=== PATIENT | male | born 1955 | race Caucasian/White ===

== ENCOUNTER 2017-07-29 05:00 | Inpatient (IN) | payer BC, OTHER ==
--- NOTE | 2017-06-30 10:09 | HISTORY & PHYSICAL EXAMINATION ---
DATE OF ADMISSION: 07/29/2017 PROCEDURE: Right knee replacement. HISTORY OF PRESENT ILLNESS: The patient is a charu 62-year-old male who presents today for preop evaluation prior to right knee replacement. He states he has been having pain in this knee for many years now, which has gradually worsened, has not gotten to the point it is affecting his daily activities including walking, standing, going up and down steps. He has tried previous cortisone injection as well has ambulated with a cane and walker in the past. He has tried physical therapy as well as oral anti-inflammatories including ibuprofen and Aleve. At this point in time, has failed conservative measures and would like to proceed with a right knee replacement. Of note, have a left knee replacement approximately 9 years ago and is doing well. PAST MEDICAL HISTORY: 1. Hypertension. 2. High cholesterol. 3. Sleep apnea. 4. 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 ALLERGIES: No known drug allergies. CURRENT MEDICATIONS: 1. Aspirin 81 mg daily. 2. Lisinopril 20 mg daily. 3. Omeprazole 20 mg daily. 4. Atorvastatin 20 mg daily. 5. Ranitidine 150 mg daily. 6. Vitamin D. PAST SURGICAL HISTORY: 1. Left knee replacement. 2. Removal of testicle 1992 secondary to cancer. FAMILY HISTORY: Noncontributory. SOCIAL HISTORY: The patient is . Lives in a 1 story home, is employed as a baker. REVIEW OF SYSTEMS: Otherwise negative. Please see HPI for pertinent positives. PHYSICAL EXAMINATION: GENERAL: Charu 62-year-old male in no acute distress, alert and oriented x3, 6 feet 2 inches, weighs 267 pounds. VITAL SIGNS: Blood pressure 130/82, pulse 68, O2 sat 98%. HEENT: Normocephalic, atraumatic. CARDIAC: Regular rate and rhythm. No murmurs or gallops appreciated. Resting pulse 68 beats per minute. LUNGS: Clear to auscultation without rales or wheeze bilaterally. ABDOMEN: Soft, nontender. Bowel sounds present. EXTREMITIES: Right lower extremity is neurovascularly intact. Calves are soft and nontender. DP pulse +2. Demonstrates good quad tone. Straight leg raise without lag. Overall has varus alignment. Positive crepitation with motion, range of motion is 0/5/115. IMAGING: Reviewed of the right knee show findings consistent with degenerative joint disease including joint space narrowing, subchondral sclerosis, peripheral osteophytes noted. Has complete loss of joint space of the medial compartment. IMPRESSION: 1. Right knee degenerative joint disease. 2. Past medical history as outlined above. PLAN: Further care discussed with patient. At this point in time, has failed conservative measures. He would like to proceed with a right knee replacement. We will place on aspirin 81 mg p.o. b.i.d. for a month postop. He would like to be discharged home with outpatient therapy.
[2017-06-30 11:12] VITALS: BMI 34.0
--- NOTE | 2017-06-30 11:48 | PAT Medication Instructions ---
Service Date Jun 30, 2017. Current Home Medication List Aspirin (Aspirin Ec), 81 MG PO QAM Atorvastatin (Lipitor), 20 MG PO HS Cholecalciferol (Vitamin D), 2,000 INTER.UNIT PO QAM Lisinopril (Zestril), 20 MG PO QAM Ranitidine (Zantac), 1 TAB PO BID Medication Instructions For Your Scheduled Surgery - Hold the following medications the morning of surgery: Cholecalciferol (Vitamin D), 2,000 INTER.UNIT PO QAM Lisinopril (Zestril), 20 MG PO QAM - Take the following medications the morning of surgery with a sip of water OTHERWISE NOTHING TO EAT OR DRINK AFTER MIDNIGHT: Aspirin (Aspirin Ec), 81 MG PO QAM Ranitidine (Zantac), 1 TAB PO BID - Take the following medications as scheduled the night before surgery: Ranitidine (Zantac), 1 TAB PO BID Atorvastatin (Lipitor), 20 MG PO HS If you have any questions please call us at [phone] or [phone] or [phone]
[2017-06-30 12:17] LABS: BASO % 0.3 %; EOS % 1.4 %; HEMATOCRIT 39.6 % (42-52); IG% 0.3 %; LYMPH % 26.3 %; LYMPH ABS # 1.72 K/uL (1.2-3.4); MEAN CELL VOLUME 90.2 fL (80-100); MEAN CORPUSCULAR HEMOGLOBIN 31.2 pg (25-34); MEAN CORPUSCULAR HGB CONC 34.6 g/dl (32-36); MEAN PLATELET VOLUME 9.7 fL (7.4-10.4); MONO % 5.4 %; NEUT % 66.3 %; PLATELET COUNT 174 K/uL (130-400); RED BLOOD COUNT 4.39 M/uL (4.7-6.1); WHITE BLOOD COUNT 6.53 K/uL (4.8-10.8)
[2017-06-30 12:18] LABS: BASO ABS # 0.02 K/uL (0-0.2); COMPLETE YES
[2017-06-30 12:19] LABS: URINE APPEARANCE CLEAR (CLEAR); URINE BILIRUBIN NEG (NEG); URINE COLOR YELLOW; URINE NITRITE NEG (NEG); UROBILINOGEN NEG (NEG)
[2017-06-30 12:21] LABS: MANUAL MICROSCOPIC REQUIRED? NO; REVIEW REQ? NO
[2017-06-30 12:28] LABS: PROTHROMBIN TIME (PATIENT) 10.4 SECONDS (9.0-12.0)
--- NOTE | 2017-06-30 12:35 | DIAGNOSTIC IMAGING REPORT ---
CHEST PREADMISSION(PA/LAT) CLINICAL HISTORY: Preoperative chest COMPARISON STUDY: 02/17/2006 FINDINGS: The cardiac and mediastinal contours are normal. There is no evidence of focal pulmonary consolidation. There is no evidence of failure. No pleural effusions are visualized.[ IMPRESSION: No active disease in the chest. Electronically signed by: Alejandro Parrish M.D. 06/30/2017 12:34 PM Dictated Date/Time: 06/30/2017 12:34 PM
[2017-06-30 12:46] LABS: ESTIMATED AVERAGE GLUCOSE 111 mg/dl; HA1C FLAG Normal (Normal)
[2017-06-30 13:20] LABS: BUN/CREATININE RATIO 11.3 (10-20); CALCIUM 9.1 mg/dl (8.5-10.1); CREATININE 1.1 mg/dl (0.60-1.40); POTASSIUM 4.1 mmol/L (3.5-5.1)
[2017-07-29] VITALS (11 sets, daily range): BP systolic 126–153; BP diastolic 80–95; PULSE 73–88; TEMP 36.4–36.6; O2SAT 94–99; Ht 188 cm; Wt 121.2 kg
[~2017-07-29] VITALS: Ht 188 cm; Wt 121.2 kg
[~2017-07-29 05:00] MED LIST: ASPI81TA28 PO; ATOR-22 PO; CHOL100010 PO; LISI-725 PO; ZNTT/150 PO
[2017-07-29] MEDS ORDERED: ACETAMINOPHEN 500 MG TAB PO SCH (06:00)
[2017-07-29] MEDS ORDERED: CEFAZOLIN 3000 MG/65 ML D5W 65 ML IV SCH (06:00)
[2017-07-29] MEDS ORDERED: DEXAMETHASONE 4 MG TAB PO SCH (06:00)
[2017-07-29] MEDS ORDERED: FAMOTIDINE 20 MG TAB PO SCH (06:00)
[2017-07-29] MEDS ORDERED: METOCLOPRAMIDE HCL 10 MG TAB PO SCH (06:00)
[2017-07-29] MEDS ORDERED: CeleBREX 200 MG CAP PO SCH (06:00)
[2017-07-29] MEDS ORDERED: TRANEXAMIC ACID INJ 1,000 MG in SODIUM CHLORIDE 0.9% 100ML 100 ML IV SCH (06:00)
[2017-07-29] MEDS ORDERED: ROPIVACAINE 5MG/ML 30 ML 150 MG, BUPIVACAINE/EPINEPHR 0.5% MPF 30 ML, KETOROLAC TROMETH... INFIL SCH ×7 (06:00)
[2017-07-29] MEDS ORDERED: LACTATED RINGER'S 1000ML 1,000 ML IV SCH (06:00)
[2017-07-29] MEDS ORDERED: GABAPENTIN 300 MG CAP PO SCH (06:00)
[2017-07-29] MEDS ORDERED: LACTATED RINGER'S 1000ML 500 ML IV ONE (06:00)
[2017-07-29] MEDS ORDERED: LACTATED RINGER'S 1000ML IV SCH (06:00)
[2017-07-29] MEDS ORDERED: BUPIVACAINE 0.5 % 5 MG/1 ML PF 10ML VIAL ONE (06:29)
[2017-07-29] MEDS ORDERED: BUPIVACAINE 0.25% 30 ML VIAL ONE (06:29)
[2017-07-29] MEDS ORDERED: MIDAZOLAM HCL 1 MG/ML 2ML VIAL ONE (06:49)
[2017-07-29] MEDS ORDERED: FENTANYL CITRATE INJ 50 MCG/1 ML 2 ML VIAL ONE (06:50)
[2017-07-29] MEDS ORDERED: ORTHO JOINT ANESTHETIC ONE (06:54)
[2017-07-29] MEDS ORDERED: BACITRACIN 50000 UNIT VIAL ONE (06:54)
[2017-07-29] MEDS ORDERED: POVIDONE-IODINE OP SOLN 30 ML BTL ONE (06:54)
--- NOTE | 2017-07-29 07:15 | History & Physical Bridge Note ---
H&P Re-Evaluation Bridge Note: I have examined the patient, reviewed the History & Physical and in the interval since the performance of the History & Physical I have noted the following changes of clinical significance: No changes noted
[2017-07-29] MEDS ORDERED: LIDOCAINE HCL 2% 2 ML VIAL (20MG/ML) ONE (07:47)
[2017-07-29] MEDS ORDERED: PROPOFOL IV EMULSION 10 MG/ML 20 ML VIAL IV ONE ×2 (07:47→08:35)
[2017-07-29] MEDS ORDERED: PHENYLEPHRINE 100MCG/ML 5ML SYR ONE (07:47)
--- NOTE | 2017-07-29 08:39 | [facility] Operative Report ---
Operative Report Operative Date Jul 29, 2017. Pre-Operative Diagnosis Right Knee Degenerative Joint Disease Post-Operative Diagnosis Same as preop Procedure(s) Performed Right Total KNne Arthroplasty utilizing Wu & Nephew journey 2 patient matched total knee arthroplasty size 9 femur a tibia 13 Pati [address] Barksdale Prosthetist Surgeon(s) Morro Ya PA-C Estimated Blood Loss 5 ml Findings Patient presents with severe end-stage tricompartmental degenerative joint disease of the right knee for right total knee arthroplasty postoperative pain management DVT prophylaxis antibiotics Specimens A. Right Knee Bone and Tissue Complication(s) None Disposition Recovery Room / PACU Indications Patient presents after failing attempts at conservative management for the right knee with a severe end-stage DJD varus alignment subchondral sclerosis medial osteophytes varus alignment plans for total knee arthroplasty BioSorb pain management DVT prophylaxis. Description of Procedure After proper prepping and draping of the Right lower extremity anterior midline incision was made over the region of the extensor extensor mechanism after meticulous hemostasis was obtained and maintained in subcutaneous tissues a medial parapatellar incision was made The patella was subluxed lateralward the medial lateral gutter were cleaned from any hypertrophic synovitis and scar tissue of the distal femoral block was placed and the distal femoral osteotomy cut was made subsequently the chamfers anterior and posterior osteotomy cuts were made utilizing the 4-in-1 block the tibia was subsequently subluxed anteriorward medial and ateral meniscal remnants were excised in their entirety remnants of the anterior and posterior cruciate ligaments were excised in their entirety excellent exposure of the proximal tibia was obtained the tibial osteotomy guide was placed on the proximal tibial osteotomy cut was made once again the knee was irrigated with copious amounts of sterile saline solution the patella was subsequently everted lateralward thickened scar tissue around the patella was removed the patella was subsequently cut utilizing a freehand technique and was drilled prepared for final preparation and placement of patella socially flexion-extension gaps were checked and the equal and symmetric trials were placed to the appropriate femoral and tibial trials with poly-spacer being placed for equal flexion and extension gaps and full range of motion including extension to 0 and flexion to 140 the trial components after having been taken to recovery range of motion was subsequently removed meticulous hemostasis was obtained and maintained subsequently a knee block injection of joint cocktail including ropivacaine 0.5% 150 mg. Bupivacaine 0.5 % epinephrine 1-200,030 mL's toradol 30 mg dexamethasone 4 mg ketamine 10 mg clonidine 100 micrograms normal saline solution 30 mg was infiltrated into the soft tissues of the posterior knee medial lateral gutters and periosteal synovium special attention was paid to protect neurovascular structures at all times subsequently trial components having been removed the knee was irrigated with sterile saline solution. debris was removed the proximal tibia was subsequently prepared and was made ready for the placement of the tibial component tibial component was also cemented and tamped into position the femoral component was subsequently placed and cemented in the position the patellar component was subsequently cemented in position because hemostasis once again obtained and maintained wound having been thoroughly irrigated with debridement and debridement lavage was performed as well as a medial parapatellar incision closed with #1 Vicryl in interrupted fashion subcutaneous was closed with #2 Vicryl skin was closed with skin clips. PA-C was necessary for prepping and drapping as well as wound closure of deep fascia Sub cutaneous tissue and skin and was necessary for the case. A sterile compressive dressing was placed patient was taken to recovery in stable condition of report dictated by Shamir I attest to the content of the Intraoperative Record and any orders documented therein. Any exceptions are noted below. I attest to the content of the Intraoperative Record and any orders documented therein. Any exceptions are noted below.
[2017-07-29] MEDS ORDERED: LABETALOL HCL IV 5 MG/ML 20ML IV PRN (09:15)
[2017-07-29] MEDS ORDERED: HYDROmorphone INJ 1 MG/ML SYR IV PRN (09:15)
[2017-07-29] MEDS ORDERED: EpHEDrine SULFATE INJ 50 MG/ML AMP IV PRN (09:15)
[2017-07-29] MEDS ORDERED: ONDANSETRON INJ 2 MG/ML 2 ML VIAL IV PRN ×2 (09:15→09:30)
[2017-07-29] MEDS ORDERED: ATROPINE SULFATE 0.1 MG/ML 5ML SYR IV PRN (09:15)
[2017-07-29] MEDS ORDERED: FENTANYL CITRATE INJ 50 MCG/1 ML 2 ML VIAL IV PRN (09:15)
[2017-07-29] MEDS ORDERED: MEPERIDINE HCL 25 MG/ML CARP IV PRN (09:15)
[2017-07-29] MEDS ORDERED: MAGNESIUM HYDROXIDE SUSP 30 ML UDC PO PRN (09:30)
[2017-07-29] MEDS ORDERED: OXYCODONE HCL IR 5 MG TAB (IMMEDIATE RELEASE) PO PRN (09:30)
[2017-07-29] MEDS ORDERED: ALUMINUM/MAGNESIUM/SIMETH (MAALOX MAX) 30 ML UDC PO PRN (09:30)
[2017-07-29] MEDS ORDERED: MoRPHine SULFATE 2 MG/ML CARP IV PRN ×2 (09:30→09:45)
[2017-07-29] MEDS ORDERED: TAMSULOSIN HCL 0.4 MG CAP PO PRN (09:30)
[2017-07-29] MEDS ORDERED: BISACODYL 10 MG SUPP PR PRN (09:30)
[2017-07-29] MEDS ORDERED: MoRPHine SULFATE 4 MG/ML 1 ML CARP\\VIAL IV PRN (09:45)
[2017-07-29] MEDS ORDERED: MoRPHine SULFATE 10 MG/ML CARP/VIAL IV PRN (09:45)
--- NOTE | 2017-07-29 10:00 | DIAGNOSTIC IMAGING REPORT ---
TWO VIEWS RIGHT KNEE CLINICAL HISTORY: Postoperative examination. FINDINGS: AP and crosstable lateral portable views of the right knee are obtained. A right knee arthroplasty is in near anatomic alignment. There has been undersurface remodeling of the patella. No acute fracture is seen. There are expected postoperative changes around the knee including a surgical drain, soft tissue edema, and subcutaneous gas. IMPRESSION: Expected postoperative changes status post right knee arthroplasty. No acute fracture is seen. Electronically signed by: Jesus Patton M.D. 07/29/2017 9:58 AM Dictated Date/Time: 07/29/2017 9:58 AM
--- NOTE | 2017-07-29 10:04 | Anesthesiology Progress Note ---
Anesthesia Post Op Note Date & Time Jul 29, 2017 at 10:04 Vital Signs Pain Intensity: 0 Vital Signs Past 12 Hours Date Time Temp Pulse Resp B/P (MAP) Pulse Ox O2 Delivery O2 Flow Rate FiO2 07/29/17 10:00 82 16 123/81 98 Nasal Cannula 2 07/29/17 09:50 36.4 87 16 116/75 99 Nasal Cannula 2 07/29/17 09:40 87 16 111/66 99 Nasal Cannula 2 07/29/17 09:30 87 16 115/70 100 Oxymask 10 07/29/17 09:20 36.7 94 16 99/67 100 Oxymask 10 07/29/17 06:00 36.4 73 20 134/95 07/29/17 05:47 99 Room Air Notes Mental Status: alert / awake / arousable, participated in evaluation Pt Amnestic to Procedure: Yes Nausea / Vomiting: adequately controlled Pain: adequately controlled Airway Patency, RR, SpO2: stable & adequate BP & HR: stable & adequate Hydration State: stable & adequate Neuraxial Anesthesia: was administered, sensory block is resolving Anesthetic Complications: no major complications apparent
[2017-07-29] MEDS: D5W AND 1/2NSS + 20MEQ KCL 1,000 ML IV SCH ×2 (11:32→21:25)
[2017-07-29] MEDS: FERROUS GLUCONATE 324 MG TAB PO SCH ×2 (12:14→18:45)
[2017-07-29] MEDS: ACETAMINOPHEN 500 MG TAB PO SCH ×2 (14:13→22:03)
[2017-07-29] MEDS: TRAMADOL HCL 50 MG TAB PO PRN ×2 (16:00→17:05)
[2017-07-29] MEDS: CEFAZOLIN IV 2,000 MG in SYRINGE 0 ML IV SCH (16:00)
[2017-07-29] MEDS ORDERED: SENNA 8.6 MG TAB PO SCH (21:00)
[2017-07-29] MEDS: DOCUSATE SODIUM 100 MG CAP PO SCH (21:00)
[2017-07-29] MEDS ORDERED: ATORVASTATIN 20 MG TAB PO SCH (21:00)
[2017-07-29] MEDS: RANITIDINE HCL 150 MG TAB PO SCH (21:25)
[2017-07-29] MEDS: ASPIRIN 81 MG ECTAB PO SCH (22:02)
[2017-07-29] MEDS: CeleBREX 200 MG CAP PO SCH (22:02)
[2017-07-30] MEDS: TRAMADOL HCL 50 MG TAB PO PRN (00:25)
[2017-07-30] MEDS: CEFAZOLIN IV 2,000 MG in SYRINGE 0 ML IV SCH (00:25)
[2017-07-30 03:09] VITALS: BP 124/78; PULSE 77; TEMP 36.5; O2SAT 99
[2017-07-30] MEDS: D5W AND 1/2NSS + 20MEQ KCL 1,000 ML IV SCH (05:28)
[2017-07-30] MEDS: ACETAMINOPHEN 500 MG TAB PO SCH ×2 (05:28→14:27)
[2017-07-30 06:12] LABS: HEMATOCRIT 35.9 % (42-52); MEAN CELL VOLUME 88.4 fL (80-100); MEAN CORPUSCULAR HEMOGLOBIN 31.8 pg (25-34); MEAN CORPUSCULAR HGB CONC 35.9 g/dl (32-36); MEAN PLATELET VOLUME 10.3 fL (7.4-10.4); PLATELET COUNT 177 K/uL (130-400); RED BLOOD COUNT 4.06 M/uL (4.7-6.1); WHITE BLOOD COUNT 15.06 K/uL (4.8-10.8)
[2017-07-30 06:44] LABS: BUN/CREATININE RATIO 14.5 (10-20); CREATININE 1.22 mg/dl (0.60-1.40); POTASSIUM 4.3 mmol/L (3.5-5.1)
--- NOTE | 2017-07-30 07:43 | Orthopedic Progress Note ---
Orthopedic Progress Note Date of Service Jul 30, 2017. Subjective Post OP Day: 1 Reports: feeling well, Denies: chest pain, SOB, nausea / vomiting, light headedness, calf pain Objective calves soft nontender, N/V intact, capillary refill less than 2 sec., dressing C /D/I, A&O x3, toes mobile, hemovac drainage Date Time Temp Pulse Resp B/P (MAP) Pulse Ox O2 Delivery O2 Flow Rate FiO2 07/30/17 03:09 36.5 77 16 124/78 (93) 99 Room Air 07/30/17 00:15 Room Air 07/29/17 23:07 36.6 76 17 133/85 (101) 97 Room Air 07/29/17 19:37 36.5 84 18 153/94 (113) 98 Room Air 07/29/17 15:50 98 Room Air 07/29/17 15:21 36.4 88 18 128/80 (96) 97 Nasal Cannula 2.0 07/29/17 13:23 36.4 88 20 147/86 (106) 98 Nasal Cannula 2.0 07/29/17 12:18 36.6 82 16 151/94 (113) 98 Nasal Cannula 2.0 07/29/17 11:21 79 19 133/89 (104) 97 Nasal Cannula 2.0 07/29/17 10:51 81 19 132/87 (102) 98 Nasal Cannula 2.0 07/29/17 10:15 36.5 86 16 126/82 (97) 94 Nasal Cannula 2.0 07/29/17 10:15 Nasal Cannula 2.0 07/29/17 10:15 Nasal Cannula 2.0 07/29/17 10:00 82 16 123/81 98 Nasal Cannula 2 07/29/17 09:50 36.4 87 16 116/75 99 Nasal Cannula 2 07/29/17 09:40 87 16 111/66 99 Nasal Cannula 2 07/29/17 09:30 87 16 115/70 100 Oxymask 10 07/29/17 09:20 36.7 94 16 99/67 100 Oxymask 10 Laboratory Results 24 Hours: Test 07/30/17 05:29 Hematocrit 35.9 % Hemoglobin 12.9 g/dL Assessment & Plan Assessment: POD#1 sp right TKA Plan: PT/OT DVT proph- ASA 81mg bid Pain management- Celebrex, Senia, Tylenol Dc planning- DC home today with advantage. Keep dressing and drain intact for removal in am.
[2017-07-30] MEDS ORDERED: SNK PO (07:47)
[2017-07-30] MEDS ORDERED: ASPI81TA28 PO (07:47)
[2017-07-30] MEDS ORDERED: RXC5 PO (07:47)
[2017-07-30] MEDS ORDERED: ACET-24 PO (07:47)
[2017-07-30] MEDS ORDERED: ONDA8TAB6 PO (07:47)
[2017-07-30] MEDS ORDERED: CLB200 PO (07:47)
--- NOTE | 2017-07-30 07:48 | Discharge Instructions ---
Discharge Instructions Date of Service Jul 30, 2017. Admission Reason for Admission: Right Knee Osteoarthritis Discharge Discharge Diagnosis / Problem: sp right TKA Discharge Goals Goal(s): Decrease discomfort, Improve function, Increase independence Activity Recommendations Activity Limitations: per Instructions/Follow-up section . Instructions / Follow-Up Instructions / Follow-Up ACTIVITY RECOMMENDATIONS: SELF CARE INSTRUCTIONS AFTER TOTAL KNEE REPLACEMENT A. You may need to continue a physical therapy program after discharge from the hospital. There are several options available to you. Your doctor will assist you in selecting the best one for you. 1. An out-patient facility 2 to 3 times a week for therapy or home therapy. 2. Continue working on all exercises taught to you in the hospital. Your goals should be to increase bending of your knee to 90 degrees and beyond and to fully straighten your knee. B. You may progress at your own pace from walking with a walker or crutches to a cane; then to no assistive devices. C. Make walking a part of your daily routine. Be up as much as comfortable with rest periods throughout the day. Rest with leg elevation is very important. Use the ice wrap frequently for the first 3-4 weeks. D. There are no restrictions on activities. You may ride in a car, shop, participate in signal system testing maintainer and all social activities. E. Wear the long elastic stockings (HAYDEN hose) 20 hours a day for 2 weeks after surgery. They can be removed several times a day for laundering and for a bath. F. You may shower, no tub baths until cleared by your doctor. SPECIAL CARE INSTRUCTIONS: VERY IMPORTANT TO READ AND REVIEW A. There are a few signs you need to watch for after you are home. Call [facility] if you notice any of the followin. Increased severe knee pain. Some pain is expected especially when you exercise. 2. Increased swelling in your leg or knee; pain or swelling of the calf muscle in either lower leg. 3. Any fluid drainage from the incision. 4. Shortness of breath or chest pain. B. Please call [facility] at if you have any concerns or questions about your operation or recovery. The doctor or his nurse will return your call promptly. C. You must take antibiotics before dental work, bladder, bowel or other surgery. Your doctor will provide you with a permanent care to carry describing this precaution. IMPORTANT: * REMEMBER TO TAKE ASPIRIN, 81 MG, TWICE DAILY FOR 4 WEEKS UNLESS OTHERWISE DIRECTED. THIS IS YOUR BLOOD THINNER. * HIGH RISK PATIENTS MAY BE PRESCRIBED A STRONGER BLOOD THINNER. THIS WILL BE PROVIDED AT DISCHARGE. * CALL IF INCREASED PAIN, REDNESS, DRAINAGE OR FEVER GREATER THAT 101. * WEAR HAYDEN HOSE 20 HOURS PER DAY FOR 2 WEEKS. DERMABOND Prineo- This is a mesh tape dressing that is covered with glue. It should remain in place until the incision is properly healed, usually 10-14 days. This dressing is designed to naturally slough off. You may trim the excess mesh tape as it peels off. Incision may be briefly wet in a shower. Dry immediately by blotting with a clean, dry towel. Do not bath or swim until instructed by your doctor. Do not scratch, rub, or pick at the dressing. Do not apply any topical ointments or lotions until dressing is completely removed and/or instructed by your doctor. There may be a small piece of suture material at one end of your incision. Do not pull or trim this. If it is bothersome or catching on clothing, you may cover it with a band-aid. FOLLOW UP VISIT: If appointment is not already scheduled: Please call [facility] to make a follow-up appointment for 2 weeks after your surgery at . Current Hospital Diet Patient's current hospital diet: Regular Diet Discharge Diet Recommended Diet: Regular Diet Procedures Procedures Performed: Right Total KNne Arthroplasty utilizing Wu & Nephew journey 2 patient matched total knee arthroplasty size 9 femur a tibia 13 Pati 38 oval patella Pending Studies Studies pending at discharge: no Laboratory Results Hemoglobin A1c Test 06/30/17 11:56 Range/Units Estimated Average Glucose 111 mg/dl Hemoglobin A1c 5.5 4.5-5.6 % Medical Emergencies . Who to Call and When: Medical Emergencies: If at any time you feel your situation is an emergency, please call 911 immediately. . Non-Emergent Contact Non-Emergency issues call your: Surgeon . "Provider Documentation" section prepared by Iesha Chance. . VTE Core Measure Inpt VTE Proph given/why not?: Other Anticoagulation, T.E.D. Stockings, SCD's [place] Drug Monitoring Program Search Results: patient reviewed within database, no issues identified
[2017-07-30 07:49] VITALS: BP 134/89; PULSE 72; TEMP 36.5; O2SAT 97
[2017-07-30] MEDS: FERROUS GLUCONATE 324 MG TAB PO SCH ×2 (08:30→12:22)
[2017-07-30] MEDS ORDERED: LISINOPRIL 20 MG TAB PO SCH (09:00)
[2017-07-30] MEDS ORDERED: MULTIVITAMIN TAB PO SCH (09:00)
[2017-07-30] MEDS: DOCUSATE SODIUM 100 MG CAP PO SCH (09:00)
[2017-07-30] MEDS: CeleBREX 200 MG CAP PO SCH (09:00)
[2017-07-30] MEDS: ASPIRIN 81 MG ECTAB PO SCH (09:01)
[2017-07-30] MEDS: RANITIDINE HCL 150 MG TAB PO SCH (09:01)
[2017-07-30 11:39] VITALS: BP 144/83; PULSE 68; TEMP 36.6; O2SAT 98
== END 2017-07-30 15:00 | disposition home or self-care (01) | DRG 470 ==
LOC: C.ACU 05:00 → C.3E 06:40 → ENRESERV 09:49
PROVIDERS: ADMIT Orthopaedic Surgery; ATTEND Orthopaedic Surgery
PROC: 0SRC0J9 Replacement of Right Knee Joint with Synthetic Substitute, Cemented, Open Approach (ICD-10-PCS; principal; 2017-07-29 07:15)
DX: M17.11 Unilateral primary osteoarthritis, right knee (principal); I10 Essential (primary) hypertension; E78.00 Pure hypercholesterolemia, unspecified; Z79.899 Other long term (current) drug therapy; Z79.82 Long term (current) use of aspirin; Z96.652 Presence of left artificial knee joint; Z85.47 Personal history of malignant neoplasm of testis; Z85.118 Personal history of other malignant neoplasm of bronchus and lung; Z92.21 Personal history of antineoplastic chemotherapy

== ENCOUNTER 2023-05-26 01:40 | Observation (INO) ==
--- NOTE | 2023-05-26 01:47 | Emergency Department Note ---
History of Present Illness General Chief complaint: Chest Pain History of Present Illness This 68-year-old male presents to the ER complaining of intermittent chest pain for the past few weeks that was constant tonight. EMS gave nitroglycerin and patient felt better. He took aspirin on his own prior to arrival. No prior heart attack or stroke. Patient denies abdominal pain, fever, chills, flulike illness, radiating pain. Home Medications Medication Instructions Recorded Confirmed Type aspirin 81 mg tablet,delayed 81 mg PO QAM 09/01/19 04/19/20 History release atorvastatin 20 mg tablet 20 mg PO QAM 09/01/19 04/19/20 History lisinopril 20 mg tablet 20 mg PO BID 09/01/19 04/19/20 History omeprazole 20 mg capsule,delayed 20 mg PO BID 09/01/19 04/19/20 History release cholecalciferol (vitamin D3) 50 2,000 units PO DAILY 10/25/19 04/19/20 History mcg (2,000 unit) tablet Allergies Allergy/AdvReac Type Severity Reaction Status Date / Time No Known Drug Allergies Allergy Unknown Verified 06/15/20 14:47 Past Med/Surg History Medical History (Updated 05/26/23 @ 02:35 by Joellen Cifuentes PA-C) DJD (degenerative joint disease) GERD (gastroesophageal reflux disease) Hearing deficit Hx of duodenal ulcer Hyperlipidemia Hypertension Metastatic lung carcinoma (1990) Obesity Osteoarthritis Sleep apnea cpap-non compliant Testicular cancer surgery & chemo Surgical History History of bronchoscopy History of colonoscopy History of esophagogastroduodenoscopy (EGD) History of orchiectomy, unilateral History of total knee replacement bilateral, right TKA: 07/29/17: SAB at L3-L4 + PNB at [facility] Hx of inguinal hernia surgery (11/04/19) Open Right Direct Inguinal Hernia Repair with Mesh with Lipoma of the Cord Dr. Sood 11-04-19 Family History Aunt Family history of diabetes mellitus Grandmother Family history of diabetes mellitus Mother FHx: liver cancer Social History Smoking Status: Never smoker Cigarettes Per Day: 1 pack cigars/a month; Second Hand Exposure: No; Do You Dip or Chew Tobacco: No (quit 2005); Hx Alcohol Use: No (quit 2016 ~h/o heavy alcohol use) Hx Substance Use: No Preferred Language: Luxembourgish Communication Ability: Effective Communication Ability Comment: very [place] Paper Roller Required: No Beliefs That Will Affect Care: None Current Living Situation: Spouse Feels Safe at Home: Yes Assistive Devices: Glasses Review of Systems A total of 10 systems reviewed and were otherwise negative Physical Exam Vital Signs Vital Signs - 24 hr 05/26/23 01:43 05/26/23 01:46 05/26/23 01:46 Temperature 37.3 C Temperature Source Oral Pulse Rate 91 H 94 H 107 H Pulse Rate from SpO2 Sensor 94 H Pulse Rhythm Regular Pulse Strength Normal Respiratory Rate 20 14 Respiratory Effort / Characteristics Non-Labored Spontaneous Respiratory Depth Normal Respiratory Pattern Regular Blood Pressure 150/95 H 150/95 H Blood Pressure Mean 113 113 Blood Pressure Position Sitting Pulse Oximetry 95 98 Oxygen Delivery Method Room Air Room Air Sepsis Recent Fever Within 48 Hours No Sepsis New/Unexplained Change in Mental Status N/A Sepsis Action Taken by Nursing No Action Required 05/26/23 02:00 05/26/23 02:30 Temperature Temperature Source Pulse Rate 83 Pulse Rate from SpO2 Sensor 83 Pulse Rhythm Pulse Strength Respiratory Rate 18 Respiratory Effort / Characteristics Respiratory Depth Respiratory Pattern Blood Pressure 151/92 H 129/84 Blood Pressure Mean 100 99 Blood Pressure Position Pulse Oximetry 98 Oxygen Delivery Method Room Air Sepsis Recent Fever Within 48 Hours Sepsis New/Unexplained Change in Mental Status Sepsis Action Taken by Nursing VITALS: Vitals are noted on the nurse's note and reviewed by myself. Vital s igns stable. GENERAL: Pleasant gentleman, in no acute distress, nondiaphoretic, well- developed well-nourished. SKIN: The skin was without rashes, erythema, edema, or bruising. There is no tenting of the skin. Capillary reflex less than 2 seconds. HEAD: Normocephalic atraumatic. EARS: External auditory canals clear, EYES: Pupils equal round and reactive to light and accommodation. Conjunctivae without injection, sclerae without icterus. Extraocular movements intact. NOSE: Patent, turbinates without inflammation or discharge. MOUTH: Mucous membranes moist. Pharynx without erythema or exudate. Uvula midline. Airway patent. Tongue does not deviate. NECK: Supple without nuchal rigidity. No lymphadenopathy. No thyromegaly. Cervical spine is nontender. No JVD. HEART: Regular rate and rhythm LUNGS: Clear to auscultation bilaterally without wheezes, rales or rhonchi. No retractions or accessory muscle use. ABDOMEN: Positive bowel sounds x 4. Normal tympanic percussion. Soft, nontender, without masses or organomegaly. Manrique sign negative. No guarding or rebound tenderness. No CVA tenderness MUSCULOSKELETAL: No muscle atrophy, erythema, or edema noted. NEURO: Patient was alert and oriented to person place and time. Normal sensation to light and sharp touch. No focal neurological deficits. Medical Decision Making Medical Records Attestation: I reviewed the patient's medical records. Home Medications Current Medication List: was personally reviewed by me Laboratory Data Attestation: I reviewed the patient's lab results. 05/26/23 01:48 05/26/23 01:48 Lab Results 05/26/23 05/26/23 Range/Units 01:48 01:48 WBC 8.93 (4.8-10.8) K/ul RBC 4.45 L (4.70-6.10) M/uL Hgb 13.3 L (14.0-18.0) g/dl Hct 38.6 L (42.0-52.0) % MCV 86.7 (80.0-100.0) fL MCH 29.9 (25.0-34.0) pg MCHC 34.5 (32.0-36.0) g/dL RDW Std Deviation 43.2 (36.4-46.3) fL RDW Coeff of Alonzo 13.6 (11.5-14.5) % Plt Count 179 (130-400) K/uL MPV 10.1 (9.4-12.4) fL Immature Gran % (Auto) 0.2 % Neut % (Auto) 63.5 % Lymph % (Auto) 28.6 % [place] % (Auto) 5.7 % Eos % (Auto) 1.7 % Baso % (Auto) 0.3 % Neut # (Auto) 5.67 (1.40-6.50) K/uL Lymph # (Auto) 2.55 (1.2-3.4) K/uL [place] # (Auto) 0.51 (0.11-0.59) K/uL Eos # (Auto) 0.15 (0-0.50) K/uL Baso # (Auto) 0.03 (0-0.2) K/uL Immature Gran # (Auto) 0.02 (0.01-0.20) K/uL Sodium 139 (136-145) mmol/L Potassium 4.3 (3.5-5.1) mmol/L Chloride 108 H (98-107) mmol/L Carbon Dioxide 24 (21-32) mmol/L Anion Gap 7 (3-11) BUN 16 (6-23) mg/dl Creatinine 1.20 (0.6-1.4) mg/dl Est Cr Clr Drug Dosing 81.6 ml/min Est GFR ( Amer) 70.6 ml/min Est GFR (Non-Af Amer) 60.9 ml/min BUN/Creatinine Ratio 13.3 (10-20) Glucose 112 H (70-99(Fasting)) mg/dl Calcium 9.5 (8.6-10.3) mg/dl Total Bilirubin 0.5 (0.2-1.0) mg/dl AST 18 (13-39) U/L ALT 17 (7-52) U/L Alkaline Phosphatase 98 (34-104) U/L Troponin I High Sens 4.9 (0-20) pg/ml Total Protein 7.0 (6.0-8.3) gm/dl Albumin 3.9 (3.4-5.0) gm/dl Globulin 3.1 (2.5-4.0) gm/dl Albumin/Globulin Ratio 1.3 (0.9-2) Lipase 68 (11-82) U/L Imaging Data Attestation: I personally reviewed and interpreted this imaging study as follows: MDM Narrative Prior records/ancillary studies reviewed. Triage Nursing notes reviewed. Additional history obtained from EMS. The patient's history was concerning for chest pain. Differential diagnosis: Etiologies such as cardiac ischemia, aortic dissection, pulmonary embolism, pneumonia, pneumothorax, musculoskeletal, infections, pericarditis, myocarditis, esophageal rupture, gastrointestinal, as well as others were entertained. Physical examination: As above. ER treatment provided: An order was placed for continuous cardiac monitoring. The monitor shows a rate of 60-100 with a sinus rhythm per my interpretation. EMS gave nitroglycerin and patient already took aspirin On reassessment the patient felt better. Diagnostic interpretation by me: The electrocardiogram was ordered for chest pain EKG:Normal sinus, right bundle, no acute ST-T wave changes. Impression right bundle branch block independently interpreted by myself I think arrhythmia is unlikely. EKG shows normal sinus rhythm with no interval abnormalities such as QT prolongation or WPW. There are no findings to suggest Brugada syndrome. Cardiac monitoring in the emergency department reveals no tachycardic or bradycardic dysrhythmia. Hypertrophic cardiomyopathy was considered but there are no clear historical elements pointing toward this. EKG is not suggestive. The QRS voltage is not extremely large and there are no suggestive Q waves. The labs Independently Interpreted by myself revealed negative troponin and repeat was ordered Imaging studies: Chest x-ray with no acute consolidation, pneumothorax or free air per my independent interpretation HEART SCORE: Hx: high/mod/low suspicion: 1 ECG: ST depression/nonspecific changes/normal: 0 Age: Greater than 65/45-64/less than 45: 2 Risk factors: (Hypertension, hyperlipidemia, diabetes, coronary disease, tobacco use, cocaine use): 2 Troponin: Greater than 2 times normal limits/1-2 times normal limits/normal: 0 Total: 5 Consultation: A consultation was placed with the hospitalist. The case was discussed and diagnostics were reviewed. The patient was evaluated in the ER for further treatment. Exam and history seem consistent with chest pain with concerns for possible cardiac in etiology. Patient was pain-free after nitroglycerin that EMS gave. EKG is right bundle unchanged from prior. No recent heart testing. First troponin is negative. Repeat was ordered. Medicine was consulted and the case was discussed. Patient will be evaluated by medicine for further evaluation and treatment. By the evaluation outlined above emergent etiologies such as aortic dissection, pulmonary embolism, pneumonia, pneumothorax, infections, pericarditis, myocarditis, gastrointestinal, as well as others were deemed relatively unlikely. The pt informed about the findings as listed above. All questions were answered and pleased with the treatment. The chart was completed utilizing [employer] voice recognition software. Grammatical errors, random word insertions, pronoun errors, and incomplete sentences are an occassional consequence of this system due to software limi tations, ambient noise, and hardware issues. Any formal questions or concerns about the content, text, or information contained within the body of this dictation should be directly addressed to the physician planning assistant for clarification. Impression & Plan Chest pain Discharge Plan Visit Data Chief Complaint: Chest Pain ED Provider: Radha Matthews ED Midlevel Provider: Joellen Cifuentes Discharge Problem: Chest pain Patient Disposition: Admitted As Inpatient Condition: Good Forms Stand Alone Forms: [facility] Prescriptions Prescriptions: No Action cholecalciferol (vitamin D3) 2,000 unit tablet 2,000 units PO DAILY atorvastatin 20 mg Tablet 20 mg PO QAM lisinopril 20 mg Tablet 20 mg PO BID aspirin 81 mg Tablet,Delayed Release (Dr/Ec) 81 mg PO QAM omeprazole 20 mg Capsule,Delayed Release(Dr/Ec) 20 mg PO BID Referrals Referrals: Nikko Beltran [Primary Care Provider] - Chest pain Qualifiers: Chest pain type: unspecified Qualified Code(s): R07.9 - Chest pain, unspecified
[2023-05-26 02:01] LABS: Basophils # (auto) 0.03 K/uL (0-0.2); Basophils % (auto) 0.3 %; Eosinophils # (auto) 0.15 K/uL (0-0.50); Eosinophils % (auto) 1.7 %; Hematocrit (blood only) 38.6 % (42.0-52.0); Hemoglobin 13.3 g/dl (14.0-18.0); Immature Granulocytes # (auto) 0.02 K/uL (0.01-0.20); Immature Granulocytes % (auto) 0.2 %; Lymphocytes # (auto) 2.55 K/uL (1.2-3.4); Lymphocytes % (auto) 28.6 %; Mean Corpuscular Hemoglobin 29.9 pg (25.0-34.0); Mean Corpuscular Hgb Conc 34.5 g/dL (32.0-36.0); Mean Corpuscular Volume 86.7 fL (80.0-100.0); Mean Platelet Volume 10.1 fL (9.4-12.4); Monocytes # (auto) 0.51 K/uL (0.11-0.59); Monocytes % (auto) 5.7 %; Neutrophils # (auto) 5.67 K/uL (1.40-6.50); Neutrophils % (auto) 63.5 %; Platelet Count 179 K/uL (130-400); RDW Coefficient of Variation 13.6 % (11.5-14.5); RDW Standard Deviation 43.2 fL (36.4-46.3); Red Blood Count 4.45 M/uL (4.70-6.10); White Blood Count 8.93 K/ul (4.8-10.8)
[2023-05-26 02:18] LABS: Albumin Globulin Ratio 1.3 (0.9-2); Albumin Level 3.9 gm/dl (3.4-5.0); BUN Creatinine Ratio 13.3 (10-20); Bilirubin,Total 0.5 mg/dl (0.2-1.0); Calcium 9.5 mg/dl (8.6-10.3); Creatinine Clr Calc Pharmacy 81.6 ml/min; Est GFR (African American) 70.6 ml/min; Est GFR (Non-African American) 60.9 ml/min; Globulin 3.1 gm/dl (2.5-4.0); Potassium 4.3 mmol/L (3.5-5.1)
[2023-05-26 02:24] LABS: Troponin I High Sensitivity 4.9 pg/ml (0-20)
[2023-05-26 03:26] LABS: Magnesium 1.7 mg/dl (1.7-2.4)
[2023-05-26] MEDS ORDERED: SODIUM CHLORIDE 0.9% 1000ML 1,000 ML IV ONE (03:40)
[2023-05-26] MEDS ORDERED: MoRPHine SULFATE 4 MG/ML 1 ML CARP\\VIAL IV PRN (03:44)
[2023-05-26] MEDS ORDERED: oxyCODONE HCL IR 5 MG TAB (IMMEDIATE RELEASE) PO PRN (03:44)
[2023-05-26] MEDS ORDERED: LORazepam 0.5 MG TAB PO PRN (03:44)
[2023-05-26] MEDS ORDERED: PROMETHAZINE HCL 12.5 MG in SODIUM CHLORIDE 0.9% 50 ML IV PRN (03:44)
[2023-05-26] MEDS ORDERED: NITROGLYCERIN SL 0.4 MG/TAB TAB SL PRN (03:45)
[2023-05-26 03:59] LABS: D Dimer 490 ug/L FEU (0-500)
[2023-05-26 04:00] LABS: Appearance Urine Clear (Clear); Bilirubin Urine Negative (Negative); Blood Urine Negative (Negative); Color Urine Yellow; Glucose Urine UA Negative (Negative); Ketones Urine Negative (Negative); Leukocyte Esterase Urine Negative (Negative); Nitrite Urine Negative (Negative); Protein Urine Negative (Negative); Specific Gravity Urine 1.008 (1.000-1.030); Urobilinogen Urine Negative (Negative)
[2023-05-26 04:03] LABS: Reticulocyte % 1.1 % (0.5-2.0); Reticulocytes # 0.05 10^6/uL (0.02-0.10)
[2023-05-26] MEDS ORDERED: MAGNESIUM SULFATE / D5W 1 GM/100 ML BAG IV ONE (04:07)
[2023-05-26 04:29] LABS: Partial Thromboplastin Ratio 0.9; Partial Thromboplastin Time 24.5 Seconds (21.0-31.0)
[2023-05-26 04:34] LABS: Troponin I High Sensitivity 5.8 pg/ml (0-20)
[2023-05-26 04:36] LABS: Transferrin 200 mg/dl (200-360)
--- NOTE | 2023-05-26 04:39 | History & Physical Report ---
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 until patient seen by cardiology in anticipation of ischemic work-up Anemia work-up check hemoglobin A1c DVT prophylaxis. Lovenox subcu Full code Patient requesting updates from providers. Mrs. Xiomy Stewart, contact #[phone]. Text document was generated using [employer] voice recognition software. It may contain grammatical or spelling errors. Kindly contact undersigned for clarification of any documentation item in question. History of Present Illness Chief Complaint: Chest pain Primary Care Provider: Nikko Beltran History obtained from patient, family, and records. 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 Last confinement 2016 under Orthopedics service for elective right TKR. Patient with intermittent left-sided chest pain symptoms since last year. Occasional radiation to the arm. Precipitated by effort and exertion. Different from heartburn. No consultations done. Episodes more frequent since last month. Almost daily occurrence. Relieved by rest. Intermittent left flank pain last few weeks without recollection of antecedent trauma. No belly pain, hematuria/black stools/bloody stools. Last night, patient noted more intense left-sided chest heaviness with radiation to both arms at rest while he was talking to his grandson. Patient looked short of breath the family. Discomfort improved after aspirin and nitroglycerin administered by EMS. Medical History as above Surgical History : Knee surgeries Family History : Heart disease, COPD, colon cancer, DM Personal/Social history : Past tobacco abuse, occasional EtOH intake, contractor Allergies Allergy/AdvReac Type Severity Reaction Status Date / Time iron AdvReac Dizziness Verified 05/26/23 03:07 Home Medications Medication Instructions Recorded Confirmed Type aspirin 81 mg tablet,delayed 81 mg PO QAM 09/01/19 05/26/23 History release atorvastatin 20 mg tablet 20 mg PO QAM 09/01/19 05/26/23 History lisinopril 20 mg tablet 40 mg PO DAILY 09/01/19 05/26/23 History omeprazole 20 mg capsule,delayed 20 mg PO DAILY 09/01/19 05/26/23 History release cholecalciferol (vitamin D3) 50 2,000 units PO DAILY 10/25/19 05/26/23 History mcg (2,000 unit) tablet ascorbic acid (vitamin C) 500 mg 500 mg PO DAILY 05/26/23 05/26/23 History tablet (Vitamin C) multivitamin 1 tab PO DAILY 05/26/23 05/26/23 History Past Med/Surg History Medical History (Updated 05/26/23 @ 02:35 by Joellen Cifuentes PA-C) DJD (degenerative joint disease) GERD (gastroesophageal reflux disease) Hearing deficit Hx of duodenal ulcer Hyperlipidemia Hypertension Metastatic lung carcinoma (1990) Obesity Osteoarthritis Sleep apnea cpap-non compliant Testicular cancer surgery & chemo Surgical History History of bronchoscopy History of colonoscopy History of esophagogastroduodenoscopy (EGD) History of orchiectomy, unilateral History of total knee replacement bilateral, right TKA: 07/29/17: SAB at L3-L4 + PNB at [facility] Hx of inguinal hernia surgery (11/04/19) Open Right Direct Inguinal Hernia Repair with Mesh with Lipoma of the Cord Dr. Sood 11-04-19 Family History Aunt Family history of diabetes mellitus Grandmother Family history of diabetes mellitus Mother FHx: liver cancer Social History Smoking Status: Former smoker Second Hand Exposure: No; Do You Dip or Chew Tobacco: No (quit 2005); Hx Alcohol Use: No Hx Substance Use: No Preferred Language: Kenyan Communication Ability: Effective Pyrotechnic Mixer Required: No Beliefs That Will Affect Care: None Current Living Situation: Spouse Feels Safe at Home: Yes Safety Concerns: Feels Safe At This Time Assistive Devices: Glasses Review of Systems Review of Systems: As per HPI, all other systems reviewed and negative Physical Exam Physical Exam: GENERAL: Comfortable, pleasant, obese, no respiratory distress SKIN: Normal color, warm HEENT: [place] palpebral conjunctivae, no ptosis, dry buccal mucosa NECK : Supple, short neck, no tenderness CHEST : CTA, no tenderness HEART : RRR, no obvious murmurs ABDOMEN: Some distention, nontender RECTAL : Intact sphincter, brown stool (FOBT negative) EXTREMITIES : Minimal LE swelling, no LE tenderness, no other conspicuous deformities noted NEUROLOGIC : Coherent, no facial asymmetry, no other gross focality Results & Data Results & Data Vital Signs (Past 12 Hours) Vital Signs Temp Pulse Resp BP Pulse Ox O2 Del Method 05/26/23 03:31 90 15 149/99 H 91 05/26/23 02:30 83 18 129/84 98 Room Air 05/26/23 02:00 151/92 H 05/26/23 01:46 107 H 14 150/95 H 98 Room Air 05/26/23 01:46 94 H 05/26/23 01:43 37.3 C 91 H 20 150/95 H 95 Room Air Laboratory Results Laboratory Results WBC 8.93 K/ul (4.8-10.8) 05/26/23 01:48 RBC 4.45 M/uL (4.70-6.10) L 05/26/23 01:48 Hgb 13.3 g/dl (14.0-18.0) L 05/26/23 01:48 Hct 38.6 % (42.0-52.0) L 05/26/23 01:48 MCV 86.7 fL (80.0-100.0) 05/26/23 01:48 MCH 29.9 pg (25.0-34.0) 05/26/23 01:48 MCHC 34.5 g/dL (32.0-36.0) 05/26/23 01:48 RDW Std Deviation 43.2 fL (36.4-46.3) 05/26/23 01:48 RDW Coeff of Alonzo 13.6 % (11.5-14.5) 05/26/23 01:48 Plt Count 179 K/uL (130-400) 05/26/23 01:48 MPV 10.1 fL (9.4-12.4) 05/26/23 01:48 Immature Gran % (Auto) 0.2 % 05/26/23 01:48 Neut % (Auto) 63.5 % 05/26/23 01:48 Lymph % (Auto) 28.6 % 05/26/23 01:48 [place] % (Auto) 5.7 % 05/26/23 01:48 Eos % (Auto) 1.7 % 05/26/23 01:48 Baso % (Auto) 0.3 % 05/26/23 01:48 Reticulocyte % (Auto) 1.1 % (0.5-2.0) 05/26/23 03:46 Neut # (Auto) 5.67 K/uL (1.40-6.50) 05/26/23 01:48 Lymph # (Auto) 2.55 K/uL (1.2-3.4) 05/26/23 01:48 [place] # (Auto) 0.51 K/uL (0.11-0.59) 05/26/23 01:48 Eos # (Auto) 0.15 K/uL (0-0.50) 05/26/23 01:48 Baso # (Auto) 0.03 K/uL (0-0.2) 05/26/23 01:48 Reticulocyte # 0.05 10^6/uL (0.02-0.10) 05/26/23 03:46 Immature Gran # (Auto) 0.02 K/uL (0.01-0.20) 05/26/23 01:48 APTT 24.5 Seconds (21.0-31.0) 05/26/23 03:46 PTT Ratio 0.9 05/26/23 03:46 D-Dimer 490 ug/L FEU (0-500) 05/26/23 01:48 Sodium 139 mmol/L (136-145) 05/26/23 01:48 Potassium 4.3 mmol/L (3.5-5.1) 05/26/23 01:48 Chloride 108 mmol/L (98-107) H 05/26/23 01:48 Carbon Dioxide 24 mmol/L (21-32) 05/26/23 01:48 Anion Gap 7 (3-11) 05/26/23 01:48 BUN 16 mg/dl (6-23) 05/26/23 01:48 Creatinine 1.20 mg/dl (0.6-1.4) 05/26/23 01:48 Est Cr Clr Drug Dosing 81.6 ml/min 05/26/23 01:48 Est GFR ( Amer) 70.6 ml/min 05/26/23 01:48 Est GFR (Non-Af Amer) 60.9 ml/min 05/26/23 01:48 BUN/Creatinine Ratio 13.3 (10-20) 05/26/23 01:48 Glucose 112 mg/dl (70-99(Fasting)) H 05/26/23 01:48 Calcium 9.5 mg/dl (8.6-10.3) 05/26/23 01:48 Magnesium 1.7 mg/dl (1.7-2.4) 05/26/23 01:48 Iron TNP 05/26/23 03:46 Transferrin 200 mg/dl (200-360) 05/26/23 03:46 Total Bilirubin 0.5 mg/dl (0.2-1.0) 05/26/23 01:48 AST 18 U/L (13-39) 05/26/23 01:48 ALT 17 U/L (7-52) 05/26/23 01:48 Alkaline Phosphatase 98 U/L (34-104) 05/26/23 01:48 Troponin I High Sens 5.8 pg/ml (0-20) 05/26/23 03:46 Total Protein 7.0 gm/dl (6.0-8.3) 05/26/23 01:48 Albumin 3.9 gm/dl (3.4-5.0) 05/26/23 01:48 Globulin 3.1 gm/dl (2.5-4.0) 05/26/23 01:48 Albumin/Globulin Ratio 1.3 (0.9-2) 05/26/23 01:48 Lipase 68 U/L (11-82) 05/26/23 01:48 Urine Color Yellow 05/26/23 03:46 Urine Appearance Clear (Clear) 05/26/23 03:46 Urine pH 6.0 (4.5-7.5) 05/26/23 03:46 Ur Specific [place] 1.008 (1.000-1.030) 05/26/23 03:46 Urine Protein Negative (Negative) 05/26/23 03:46 Urine Glucose (UA) Negative (Negative) 05/26/23 03:46 Urine Ketones Negative (Negative) 05/26/23 03:46 Urine Blood Negative (Negative) 05/26/23 03:46 Urine Nitrite Negative (Negative) 05/26/23 03:46 Urine Bilirubin Negative (Negative) 05/26/23 03:46 Urine Urobilinogen Negative (Negative) 05/26/23 03:46 Ur Leukocyte Esterase Negative (Negative) 05/26/23 03:46 CT abdomen pelvis: 1. Right-sided nephrolithiasis. No ureteral stones. No hydronephrosis. 2. No definite bowel wall thickening or obstruction. 3. Normal appendix. 4. Colonic diverticulosis. No evidence for acute diverticulitis. Diagnostic Findings Chest x-ray as per my interpretation no congestion EKG as per my interpretation : Rate 90, NSR, normal axis, RBBB, T wave abnormalities inferior leads (1) Chest pain Chest pain type: unspecified Qualified Code(s): R07.9 - Chest pain, unspe cified
[2023-05-26 04:45] LABS: Ferritin 154.2 ng/ml (8-388)
[2023-05-26 04:56] LABS: Folate (Folic Acid),Ser orPlas > 22.30 ng/ml (>5.38)
[2023-05-26 04:57] LABS: Vitamin B12 380 pg/ml (180-914)
[2023-05-26] MEDS ORDERED: ACETAMINOPHEN 325 MG TAB PO PRN (05:38)
--- NOTE | 2023-05-26 06:55 | CT Scan Report ---
ABDOMEN AND PELVIS CT WITHOUT CONTRAST CT DOSE: 1549.61 mGy.cm HISTORY: flank pain TECHNIQUE: Multiaxial CT images of the abdomen and pelvis were performed without contrast. A dose lo wering technique was utilized adhering to the principles of ALARA. COMPARISON STUDY: None. FINDINGS: Mild dependent changes seen at the lung bases. No pneumoperitoneum or pneumatosis. No acute fractures identified. The unenhanced liver, gallbladder, pancreas, spleen, and adrenal glands are un remarkable. There are 2 punctate stones within the right kidney. No left renal calculi. There is a 1. 5 cm hypodense lesion within the lower pole the right kidney. This is technically indeterminate on th is noncontrast study but statistically favors a cyst. No retroperitoneal lymphadenopathy. No pelvic l ymphadenopathy. The bladder is unremarkable. No pelvic free fluid. Suboptimal evaluation for bowel pa thology due to the lack of intravenous and oral contrast. However, there is no definite bowel wall th ickening or obstruction. Moderate fecal retention. Normal appendix. IMPRESSION: 1. Right-sided nephrolithiasis. No ureteral stones. No hydronephrosis. 2. No definite bowel wall thickening or obstruction. 3. Normal appendix. 4. Colonic diverticulosis. No evidence for acute diverticulitis. ACT 112: Negative or not required by law. Electronically signed by: Mitchell Schultz M.D. 05/26/2023 6:52 AM
--- NOTE | 2023-05-26 07:06 | XRay Report ---
XR chest 1V portable HISTORY: Chest pain, nonspecific COMPARISON: Chest 06/30/2017. FINDINGS: The lungs are clear. Cardiac silhouette is normal in size. No pleural effusions. No pneumot horax. IMPRESSION: No acute process. ACT 112: Negative or not required by law. Electronically signed by: Mitchell Schultz M.D. 05/26/2023 7:04 AM
--- NOTE | 2023-05-26 07:39 | Cardiology Consultation ---
Date of Consultation May 26, 2023 Supervising Physician Co-Signing Physician Notes Attending Staff: Pt seen and evaluated with [facility] staff. Concur with observations and plans 68 yo man presenting with substernal chest pressure Chest pressure worsening over the past month Pt works as a contractor Has noticed worsening dyspnea and chest pressure with exertion - walking to his truck when parked on an incline Then noted chest pressure + dyspnea when climbing stairs from basement Chest pain syndrome culminated with pressure at rest when talking to grandson Chest pressure relieved by SL NTG Episodes last for minutes Radiation to bilateral upper extremities No palpitations No pre or dominique syncope No LE edema No PND or orthopnea EKG - RBBB - no acute ischemic changes. RBBB was present in 2019 Troponin negative x 3 ECHOcardiogram: 2020 LVEF 55% No WMA Grade II Diastolic Dysfunction Borderline enlargement of Aortic Root Plans: Chest Pressure + Dyspnea Initially - syndrome with exertion, now progressing to symptoms at rest ASCVD Risks: * Hypertension * Hyperlipidemia * Former Smoker Pattern of chest pressure - crescendo culminating with sx at rest - c/w Unstable angina Plans for: * ECHOCardiogram to evaluate LV function/WMA * Start IV Heparin * Plans for Coronary Angiograhy * NPO except for meds * Continue ASA 81 mg po per day * SBP near goal of 120 mmHg * Continue Lisinopril 40 mg po per day * LDL 70 * Continue Lipitor 20 mg po per day * Creat 1.2 Rah Briceno History of Present Illness Reason for Consultation: Chest pain Requesting Physician: Medicine Service Attending Physician: Arvind James MD History of Present Illness Chest pressure @ rest Relieved by nitroglycerin ASCVD Risk: * Hypertension * Hyperlipidemia, on statin Rx * Former Smoker * DEBBIE (CPAP intolerance) * Hyperglycemia * Testicular cancer status post surgery/chemotherapy, in remission for almost 2 decades now Allergies Allergy/AdvReac Type Severity Reaction Status Date / Time iron AdvReac Dizziness Verified 05/26/23 03:07 Home Medications Medication Instructions Recorded Confirmed Type aspirin 81 mg tablet,delayed 81 mg PO QAM 09/01/19 05/26/23 History release atorvastatin 20 mg tablet 20 mg PO QAM 09/01/19 05/26/23 History lisinopril 20 mg tablet 40 mg PO DAILY 09/01/19 05/26/23 History omeprazole 20 mg capsule,delayed 20 mg PO DAILY 09/01/19 05/26/23 History release cholecalciferol (vitamin D3) 50 2,000 units PO DAILY 10/25/19 05/26/23 History mcg (2,000 unit) tablet ascorbic acid (vitamin C) 500 mg 500 mg PO DAILY 05/26/23 05/26/23 History tablet (Vitamin C) multivitamin 1 tab PO DAILY 05/26/23 05/26/23 History Patient History Medical History (Updated 05/26/23 @ 02:35 by Joellen Cifuentes PA-C) DJD (degenerative joint disease) GERD (gastroesophageal reflux disease) Hearing deficit Hx of duodenal ulcer Hyperlipidemia Hypertension Metastatic lung carcinoma (1990) Obesity Osteoarthritis Sleep apnea cpap-non compliant Testicular cancer surgery & chemo Surgical History History of bronchoscopy History of colonoscopy History of esophagogastroduodenoscopy (EGD) History of orchiectomy, unilateral History of total knee replacement bilateral, right TKA: 07/29/17: SAB at L3-L4 + PNB at [facility] Hx of inguinal hernia surgery (11/04/19) Open Right Direct Inguinal Hernia Repair with Mesh with Lipoma of the Cord Dr. Sood 11-04-19 Family History Aunt Family history of diabetes mellitus Grandmother Family history of diabetes mellitus Mother FHx: liver cancer Social History Smoking Status: Former smoker Second Hand Exposure: No; Do You Dip or Chew Tobacco: No (quit 2005); Hx Alcohol Use: No Hx Substance Use: No Preferred Language: Spanish Communication Ability: Effective Engine Hostler Required: No Beliefs That Will Affect Care: None Current Living Situation: Spouse Feels Safe at Home: Yes Safety Concerns: Feels Safe At This Time Assistive Devices: Glasses Review of Systems Review of Systems: All systems reviewed & are unremarkable except as noted in HPI & below Physical Exam Physical Exam: Tall man - NAD No elevation in JVP S1S2 No CTA B 2/2 Right Radial Pulse 2/2 Right Femoral Pulse - no bruit No C/C/E Results & Data Vital Signs (Past 12 Hours) Vital Signs Temp Pulse Pulse Resp BP BP Pulse Ox 05/26/23 07:24 36.8 C 77 18 127/81 99 05/26/23 05:30 05/26/23 06:24 36.7 C 79 18 145/84 H 96 05/26/23 05:32 85 05/26/23 04:30 76 16 142/95 H 97 05/26/23 04:01 89 14 154/97 H 97 05/26/23 03:31 90 15 149/99 H 91 05/26/23 02:30 83 18 129/84 98 05/26/23 02:00 151/92 H 05/26/23 01:46 107 H 14 150/95 H 98 05/26/23 01:46 94 H 05/26/23 01:43 37.3 C 91 H 20 150/95 H 95 O2 Del Method 05/26/23 07:24 Room Air 05/26/23 05:30 Room Air 05/26/23 06:24 Room Air 05/26/23 05:32 05/26/23 04:30 05/26/23 04:01 05/26/23 03:31 05/26/23 02:30 Room Air 05/26/23 02:00 05/26/23 01:46 Room Air 05/26/23 01:46 05/26/23 01:43 Room Air Laboratory Results Cardiac Enzymes 05/26/23 05/26/23 Range/Units 01:48 03:46 AST 18 (13-39) U/L Troponin I High Sens 4.9 5.8 (0-20) pg/ml Coagulation 05/26/23 Range/Units 03:46 APTT 24.5 (21.0-31.0) Seconds CBC 05/26/23 Range/Units 01:48 WBC 8.93 (4.8-10.8) K/ul RBC 4.45 L (4.70-6.10) M/uL Hgb 13.3 L (14.0-18.0) g/dl Hct 38.6 L (42.0-52.0) % Plt Count 179 (130-400) K/uL Neut # (Auto) 5.67 (1.40-6.50) K/uL Lymph # (Auto) 2.55 (1.2-3.4) K/uL [place] # (Auto) 0.51 (0.11-0.59) K/uL Eos # (Auto) 0.15 (0-0.50) K/uL Baso # (Auto) 0.03 (0-0.2) K/uL Comprehensive Metabolic Panel 05/26/23 Range/Units 01:48 Sodium 139 (136-145) mmol/L Potassium 4.3 (3.5-5.1) mmol/L Chloride 108 H (98-107) mmol/L Carbon Dioxide 24 (21-32) mmol/L BUN 16 (6-23) mg/dl Creatinine 1.20 (0.6-1.4) mg/dl Glucose 112 H (70-99(Fasting)) mg/dl Calcium 9.5 (8.6-10.3) mg/dl AST 18 (13-39) U/L ALT 17 (7-52) U/L Alkaline Phosphatase 98 (34-104) U/L Total Protein 7.0 (6.0-8.3) gm/dl Albumin 3.9 (3.4-5.0) gm/dl Intake and Output 05/25/23 05/26/23 05/26/23 22:59 06:59 14:59 Intake Total 0 / 0 Output Total 0 / 0 Balance 0 / 0 Intake: Oral 0 / 0 Output: Urine 0 / 0 Other: Weight 121.8 kg Weight Measurement Method Built in [facility] Medications Administered Current Inpatient Medications Acetaminophen (Acetaminophen 325 Mg Tab) 650 mg PO Q4H PRN PRN Reason: Pain or Fever Stop: 06/25/23 05:37 Aspirin (Aspirin 81 Mg Ectab) 81 mg PO [facility] Stop: 06/25/23 08:59 Last Admin: 05/26/23 07:21 Dose: 81 mg Atorvastatin Calcium (Atorvastatin 20 Mg Tab) 20 mg PO [facility] Stop: 06/25/23 08:59 Last Admin: 05/26/23 07:21 Dose: 20 mg Enoxaparin Sodium (Enoxaparin Inj 40 Mg/0.4 Ml Syr) 40 mg SQ [facility] Stop: 06/25/23 08:59 Last Admin: 05/26/23 07:20 Dose: Not Given Sodium Chloride (Nss 1000ml) 1,000 mls @ 60 mls/hr IV .[id number] ONE Stop: 05/26/23 20:19 Last Admin: 05/26/23 04:04 Dose: 60 mls/hr Promethazine HCl 12.5 mg/ (Sodium Chloride) 50.5 mls @ 202 mls/hr IV Q6H PRN PRN Reason: Nausea And Vomiting Stop: 06/25/23 03:43 Lisinopril (Lisinopril 40 Mg Tab) 40 mg PO DAILY [facility] Stop: 06/25/23 08:59 Last Admin: 05/26/23 07:21 Dose: 40 mg Lorazepam (Lorazepam 0.5 Mg Tab) 0.5 mg PO TID PRN PRN Reason: Anxiety Stop: 06/25/23 03:43 Morphine Sulfate (Morphine Sulfate 4 Mg/Ml 1 Ml Carp\Vial) 4 mg IV Q4H PRN PRN Reason: Pain Stop: 06/09/23 03:43 Multivitamins (Multivitamin Tab) 1 tab PO DAILY ABHI Stop: 06/25/23 08:59 Last Admin: 05/26/23 07:19 Dose: Not Given Nitroglycerin (Nitroglycerin Sl 0.4 Mg/Tab Tab) 0.4 mg SL Q5M PRN PRN Reason: Chest Pain Stop: 06/25/23 03:44 Oxycodone HCl (Oxycodone Hcl Ir 5 Mg Tab (Immediate Release)) 5 - 10 mg PO QID PRN PRN Reason: Pain Stop: 06/09/23 03:43 Pantoprazole Sodium (Pantoprazole 40 Mg Tab) 40 mg PO DAILY ABHI Stop: 06/25/23 08:59 Last Admin: 05/26/23 07:20 Dose: 40 mg
[2023-05-26 08:15] LABS: Chol HDL Ratio 3.1 (0-5)
[2023-05-26] MEDS ORDERED: PANTOprazole 40 MG TAB PO SCH (09:00)
[2023-05-26] MEDS ORDERED: ENOXAPARIN INJ 40 MG/0.4 ML SYR SQ SCH (09:00)
[2023-05-26] MEDS ORDERED: ATORVASTATIN 20 MG TAB PO SCH (09:00)
[2023-05-26] MEDS ORDERED: ASPIRIN 81 MG ECTAB PO SCH (09:00)
[2023-05-26] MEDS ORDERED: MULTIVITAMIN TAB PO SCH (09:00)
[2023-05-26] MEDS ORDERED: lisinopril 40 MG TAB PO SCH (09:00)
[2023-05-26 10:33] LABS: Estimated Average Glucose 123 mg/dl; Hemoglobin A1C 5.9 % (4.5-5.6)
[2023-05-26] MEDS ORDERED: MIDAZOLAM HCL 1 MG/ML 2ML VIAL ONE (12:46)
[2023-05-26] MEDS ORDERED: fentaNYL citrate PF 100 MCG/2 ML VIAL ONE (12:46)
[2023-05-26] MEDS ORDERED: HEPARIN (PORCINE) 1000 UNIT/ML 10 ML (CATH LAB USE ONLY) ONE (12:46)
[2023-05-26] MEDS ORDERED: niCARdipine HCL INJ 2.5 MG/ML 10 ML AMP ONE (12:46)
--- NOTE | 2023-05-26 12:46 | Pre Anesthesia Assessment ---
Date of Service May 26, 2023 Pre Sedation Assessment Vital Signs Temp Pulse Pulse Pulse Resp BP BP 05/26/23 12:24 86 16 170/93 H 05/26/23 11:21 97.9 F 83 18 143/88 H 05/26/23 09:12 79 05/26/23 08:45 05/26/23 07:24 98.2 F 77 18 127/81 05/26/23 05:30 05/26/23 06:24 98.1 F 79 18 145/84 H 05/26/23 05:32 85 05/26/23 04:30 76 16 142/95 H 05/26/23 04:01 89 14 154/97 H 05/26/23 03:31 90 15 149/99 H 05/26/23 02:30 83 18 129/84 05/26/23 02:00 151/92 H 05/26/23 01:46 107 H 14 150/95 H 05/26/23 01:46 94 H 05/26/23 01:43 99.1 F 91 H 20 150/95 H Pulse Ox O2 Del Method 05/26/23 12:24 99 Room Air 05/26/23 11:21 97 Room Air 05/26/23 09:12 05/26/23 08:45 Room Air 05/26/23 07:24 99 Room Air 05/26/23 05:30 Room Air 05/26/23 06:24 96 Room Air 05/26/23 05:32 05/26/23 04:30 97 05/26/23 04:01 97 05/26/23 03:31 91 05/26/23 02:30 98 Room Air 05/26/23 02:00 05/26/23 01:46 98 Room Air 05/26/23 01:46 05/26/23 01:43 95 Room Air Cardiovascular RRR, no murmur, no edema Respiratory normal respiratory effort, lungs clear to auscultation Pre-Sedation Airway Assessment Smoking Status: Former smoker Hx Sleep Apnea: No Hx Difficult Intubation: No Short, Thick Neck: No Thyromental Distance: > or= 3.5 Finger Breadths Oral Cavity: + WNL Mallampati Class: III ASA: ASA3 NPO Status Date of Last Intake of Fluids: 05/26/23 Time of Last Intake of Fluids: 08:00 Last Oral Intake of Fluids Comment: sip with meds Date of Last Intake of Solid Food: 05/25/23 Procedure Planning Contraindications for Sedation: none Current Medications Reviewed: Yes Notes The planned sedation has been discussed with the patient. Informed Consent was obtained. I have identified the patient, determined the appropriateness of sedation and have assessed the patient immediately prior to the procedure. All medicine(s) and interventions are by my order.
[2023-05-26] MEDS ORDERED: NITROGLYCERIN/D5W 100MCG/ML 20ML SYR ONE (12:47)
--- NOTE | 2023-05-26 13:43 | Post Anesthesia Assessment ---
Date of Service May 26, 2023 Post Sedation Assessment Vital Signs Temp Pulse Pulse Pulse Resp BP BP 05/26/23 13:30 86 18 05/26/23 12:24 86 16 170/93 H 05/26/23 11:21 97.9 F 83 18 143/88 H 05/26/23 09:12 79 05/26/23 08:45 05/26/23 07:24 98.2 F 77 18 127/81 05/26/23 05:30 05/26/23 06:24 98.1 F 79 18 145/84 H 05/26/23 05:32 85 05/26/23 04:30 76 16 142/95 H 05/26/23 04:01 89 14 154/97 H 05/26/23 03:31 90 15 149/99 H 05/26/23 02:30 83 18 129/84 05/26/23 02:00 151/92 H 05/26/23 01:46 107 H 14 150/95 H 05/26/23 01:46 94 H 05/26/23 01:43 99.1 F 91 H 20 150/95 H Pulse Ox O2 Del Method 05/26/23 13:30 99 Room Air 05/26/23 12:24 99 Room Air 05/26/23 11:21 97 Room Air 05/26/23 09:12 05/26/23 08:45 Room Air 05/26/23 07:24 99 Room Air 05/26/23 05:30 Room Air 05/26/23 06:24 96 Room Air 05/26/23 05:32 05/26/23 04:30 97 05/26/23 04:01 97 05/26/23 03:31 91 05/26/23 02:30 98 Room Air 05/26/23 02:00 05/26/23 01:46 98 Room Air 05/26/23 01:46 05/26/23 01:43 95 Room Air Recovery Score Activity: Moves 4 extremities Respiration: Deep Breath/Cough Circulation: +/-20% PreAnes Value Consciousness: Fully Awake Oxygen Saturation: > 92% On Room Air Post Anesthesia Score: 10 Discharge Sedation Level of Care: Fast Track Phase II Post Sedation Plan On clinical assessment, the patient appears to have tolerated the sedation without complications. Patient is recovering as anticipated. Patient will continue to be monitored by nursing and may be discharged when sedation discharge criteria are met per below protocol. Upon Completions of procedure up to 15 minutes continue every 5 minute vital signs and the P.A.R. score; then discharge to a Phase I or Fast Track to Phase II per the following guidelines: * Discharge Patient to appropriate Phase II area if PAR is 8 or greater or return to pre- procedure baseline. The post - procedure orders will be as directed. * If PAR score is less than 8 or not return to pre-procedure baseline then p atient will follow Phase I monitoring till PAR is reached for Phase II. The Phase I may be done in procedure room or may call to secure a Phase I area. * If naloxone or flumazenil are used for reversal, hold in Phase I for continued monitoring from when last reversal dose was given for a minimum of 60 minutes or longer pending the nurse and/or physician discretion of patient condition before discharge to Phase II. Please call the Sedation Physician to re-evaluate and complete post-note for discharge to Phase II area. Do NOT discharge from procedure sedation or Phase 1 until post- sedation evaluation note is complete by procedure /sedation MD Sedation Discharge Instructions to be given to the patient at discharge to home.
--- NOTE | 2023-05-26 13:55 | Cardiac Catheterization ---
[facility] Data: Rn Intensive Care Unit Cardiac Status Clinical evaluation leading to the procedure CAD Presenation: Unstable angina Diagnostic Physicians Name: Twan Dubois MD Closure Device Recommendations: Medical Therapy and/or Counseling Cardiac Cath Procedure Full Procedure Date May 26, 2023 Pre-Procedure Diagnosis Pre-Procedure Diagnosis: Angina AUC Score AUC Score: 7 Post-Procedure Diagnosis Post-Procedure Diagnosis: Normal Coronary Arteries and Normal Intracardiac Pressures Procedure(s) Performed Procedure(s) Performed: Coronary Angiography and Left Heart Cath Sap Portal Consultant Twan Dubois MD Paper Coating Supervisor(s) Cash Estimated Blood Loss Estimated Blood Loss: 5 Medication(s) Medication(s): Fentanyl, Heparin, Lidocaine 1%, Nicardipine, Nitroglycerin and Versed Summary of Findings Indication: Suspected ACS Access: 6 Fr right radial artery Catheters: teddy Jauregui diagnostic JL 4 Findings: LM -normal caliber, no significant disease LAD -medium caliber, no significant disease. Distal vessel extends around apex. Small to medium D1 without disease. Circumflex -medium caliber, no significant disease. Medium OM 2 without disease. RCA -dominant, large caliber, no significant disease LVEDP -8 Arterial Closure: TR band Summary: 1. Angiographically normal coronary arteries 2. Normal intracardiac filling pressure Recommendations: Continued ASCVD risk factor modification Hemodynamics Rest Ao:: 112/73/69 Final Ao: 114/70/96 LV: 113/8 Recommendations Recommendations: Medical Therapy and/or Counseling Specimens Specimens: None Radiation Exposure (mGy) 1022 Contrast (mls) 72 Drains Drains: moderate Anesthesia Moderate [id number] Procedural Complication(s) None Disposition PCU I attest to the content of the Intraoperative Record and any orders documented therein. Any exceptions are noted below. [facility] Card Cath Procedure Codes Cardiac Catheterization Procedure 1: Cardiovascular Cath Procedures: 75685 Coronaries and LHC (+/-LV) Moderate Sedation Procedure 1: Sedation/Anesthesia: 94326 Mod Sedation by the same physician;Init15 Min Child Age 5 & Up PG Care Time/CCT Total # of Minutes Spent Total Time Spent with Patient: Total time spent is greater than 50% in coordination of care (as documented) at patient's floor/unit and/or counseling patient:
[2023-05-26] MEDS ORDERED: SODIUM CHLORIDE 0.9% 1000ML 1,000 ML IV SCH (14:00)
--- NOTE | 2023-05-26 14:15 | Electrocardiogram Report ---
Test Reason : Blood Pressure : / mmHG Vent. Rate : 089 BPM Atrial Rate : 089 BPM P-R Int : 148 ms QRS Dur : 126 ms QT Int : 390 ms P-R-T Axes : 041 017 008 degrees QTc Int : 474 ms Normal sinus rhythm Right bundle branch block Abnormal ECG When compared with ECG of 30-JUN-2017 12:00, Questionable change in QRS axis Confirmed by Stephen Preston ([id number]) on 05/26/2023 2:15:22 PM Referred By: REFERRED SELF Confirmed By:Stephen Preston
--- NOTE | 2023-05-26 15:51 | Discharge Summary ---
Discharge Summary Date of Service May 26, 2023 Admission HPI Per Admitting Provider History obtained from patient, family, and records. 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 Last confinement 2016 under Orthopedics service for elective right TKR. Patient with intermittent left-sided chest pain symptoms since last year. Occasional radiation to the arm. Precipitated by effort and exertion. Different from heartburn. No consultations done. Episodes more frequent since last month. Almost daily occurrence. Relieved by rest. Intermittent left flank pain last few weeks without recollection of antecedent trauma. No belly pain, hematuria/black stools/bloody stools. Last night, patient noted more intense left-sided chest heaviness with radiation to both arms at rest while he was talking to his grandson. Patient looked short of breath the family. Discomfort improved after aspirin and nitroglycerin administered by EMS. Medical History as above Surgical History : Knee surgeries Family History : Heart disease, COPD, colon cancer, DM Personal/Social history : Past tobacco abuse, occasional EtOH intake, contractor Principal Dx & Hospital Course #1 = Principal Diagnosis (1) Chest pain: Relieved by nitroglycerin Rule out ACS given patient risk factors for ischemic heart disease hypertension, slightly elevated hyperlipidemia, on statin Rx hx GERD, stable on regimen hx DEBBIE (CPAP intolerance) New onset anemia, FOBT done at ER was negative Hyperglycemia rule out DM metastatic testicular cancer status post surgery/chemotherapy, in remission for almost 2 decades now past tobacco abuse OBS PCU Continue home aspirin for CAD prevention follow troponin Cardiology consult Re: Chest pain N.p.o. until patient seen by cardiology in anticipation of ischemic work-up Anemia work-up check hemoglobin A1c DVT prophylaxis. Lovenox subcu Full code Patient requesting updates from providers. Mrs. Xiomy Stewart, contact #[phone]. Text document was generated using Need voice recognition software. It may contain grammatical or spelling errors. Kindly contact undersigned for clarification of any documentation item in question. Updated Medication List Medication Instructions Recorded Confirmed Type aspirin 81 mg tablet,delayed 81 mg PO QAM 09/01/19 05/26/23 History release atorvastatin 20 mg tablet 20 mg PO QAM 09/01/19 05/26/23 History lisinopril 20 mg tablet 40 mg PO DAILY 09/01/19 05/26/23 History omeprazole 20 mg capsule,delayed 20 mg PO DAILY 09/01/19 05/26/23 History release cholecalciferol (vitamin D3) 50 2,000 units PO DAILY 10/25/19 05/26/23 History mcg (2,000 unit) tablet ascorbic acid (vitamin C) 500 mg 500 mg PO DAILY 05/26/23 05/26/23 History tablet (Vitamin C) multivitamin 1 tab PO DAILY 05/26/23 05/26/23 History Hospital Stay Data Consultations 05/26/23 02:47 ED Decision to Admit Stat 05/26/23 04:06 Consult Cardiology Routine Procedures Performed Operation Date: 05/26/23 13:00 Actual Procedures p Cath, Left with Cors and Vent - Jon Dubois MD s Cineradiography w/Routine Exam - Jon Dubois MD Diagnostic Imagining Performed 05/26/23 04:05 CT abd pelvis wo con Stat 05/26/23 12:07 CL Cath Imgs for PACS use only Routine Pending Results Patient Have Any Pending Studies at Discharge: No Discharge Instructions Given to Patient (Per Discharging Provider) Please take all medications as instructed on discharge list below. You were admitted for chest pain and underwent a heart catheterization. This revealed normal coronary arteries and a normal intracardiac filling pressure. Please continue medical therapy for ongoing prevention of cardiac disease. Specifically continue baby aspirin, lisinopril 40 mg daily, Lipitor 20 mg daily for goal LDL of less than 70. Please follow-up with [facility] cardiology at [facility]. It is recommended that you follow-up with your primary care physician within 1 week of hospital discharge to ensure you are still doing well after returning home. Please follow all postcatheterization discharge instructions including activity restrictions as noted below. It was a pleasure taking care of you! Please call if you have any questions or problems. You can reach a [facility] hospitalist on duty at [facility] 24 hours a day by calling [phone]. Take care of yourself. Maribel Dalton, DO [facility]
== END 2023-05-26 17:43 | disposition home or self-care (01) ==
LOC: ED 01:40 → 2S 01:40 → SUATTDRO 03:43 → 2S 05:00